=== PATIENT | female | born 1980 | race Two or more races ===

== ENCOUNTER 2024-11-04 02:51 | Inpatient (IN) | payer MEDICAID, SELFPAY ==
[2024-11-04] VITALS (12 sets, daily range): BP systolic 130–154; BP diastolic 80–95; PULSE 96–113; RESP 14–19; TEMP 36.3–37.6; O2SAT 95–100; BMI 28.0
--- NOTE | 2024-11-04 03:04 | EKG_ITS ---
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
[2024-11-04 03:20] LABS: Basophils # (Auto) 0.1 Thou/mm3 (0.0-0.2); Basophils % (Auto) 1 % (0-2.5); Eosinophils % (Auto) 0 % (0-10); Hematocrit 26.2 % (36.0-46.0); Immature Granulocytes % (Auto) 0 % (0-0); Immature Granulocytes Auto 0.02 Thou/mm3 (0.00-0.00); Lymphocytes # (Auto) 0.9 Thou/mm3 (1.0-4.8); Lymphocytes % (Auto) 16 % (10-50); Mean Corpuscular HGB Conc 30.5 g/dl (31.0-37.0); Mean Corpuscular Hemoglobin 20.4 pg (25.0-35.0); Mean Corpuscular Volume 67 fL (80-100); Monocytes # (Auto) 0.2 Thou/mm3 (0.0-0.8); Monocytes % (Auto) 4 % (0-12); Neutrophils # (Auto) 4.6 Thou/mm3 (1.8-7.7); Neutrophils % (Auto) 79 % (37-80); Nucleated Red Blood Cell # 0.04 Thou/mm3 (0.00-0.00); Nucleated Red Blood Cell % 1 /100 WBC (0); RDW Standard Deviation 43.4 fL (36.4-46.3); Red Blood Count 3.92 Miln/mm3 (4.00-5.20); White Blood Count 5.8 Thou/mm3 (3.6-11.0)
[2024-11-04 03:31] LABS: Platelet Count 77 Thou/mm3 (140-440)
[2024-11-04 03:42] LABS: Path Review Blood Smear Sent to Pathologist; Slide Review Platelets confirmed
[2024-11-04 03:43] LABS: Alanine Aminotransferase 68 U/L (10-49); Albumin/Globulin Ratio 0.9 (1.2-2.2); Alcohol, Blood Medical < 3.0 mg/dL (0-10.0); Alkaline Phosphatase 122 U/L (46-116); Anion Gap 17 (7-16); Aspartate Amino Transferase 206 U/L (0-34); BUN/Creatinine Ratio 14 Ratio (12-20); Bilirubin,Total 1.5 mg/dL (0.3-1.2); Blood Urea Nitrogen 10 mg/dL (9-23); Calcium 9.3 mg/dL (8.3-10.6); Calcium (Corrected) 9.3 mg/dL (8.5-10.1); Carbon Dioxide 20.4 mMol/L (20.0-31.0); Chloride 97 mMol/L (98-107); Creatinine (Component) 0.7 mg/dL (0.6-1.3); Estimated Creatinine Clearance 78.3 mL/min (>60); Globulin 4.3 gm/dL (2.3-3.5); Glucose 155 mg/dL (74-106); Osmolality,Calculated 270 (275-295); Sodium 134 mMol/L (136-145); Total Protein 8.3 gm/dL (5.7-8.2); eGFR > 60 See Note
[2024-11-04 04:10] LABS: Collection Type, Urine Clean Catch
[2024-11-04 04:31] LABS: Amphetamine/Methamp Scrn,U Positive (Negative); Barbiturate Screen,Urine Negative (Negative); Benzodiazepines Screen,Urine Negative (Negative); Benzoylecgonine Screen, Ur Negative (Negative); Fentanyl Screen,Urine Negative (Negative); Opiate Screen,Urine Negative (Negative); THC Screen,Urine Negative (Negative)
[2024-11-04 04:33] LABS: Bilirubin,Urine Negative (Negative); Blood,Urine 3+ (Negative); Clarity,Urine Turbid (Clear/Hazy); Color,Urine Amber (Lt Yel-Yel); Glucose, Urine Trace (Negative); Hyaline Casts,Urine 2 /hpf (0-1); Ketones,Urine Negative (Negative); Leukocyte Esterase,Urine Negative (Negative); Nitrite,Urine Negative (Negative); Protein,Urine 3+ (Neg - Trace); RBC,Urine 454 /hpf (0-3); Squamous Epithelial Cell,Urine 14 /hpf (0-5); Urobilinogen,Urine Negative mg/dL (0.0-1.0); WBC,Urine 13 /hpf (0-5)
--- NOTE | 2024-11-04 05:45 | PD.EDRME ---
Rapid Medical Screening Exam RME Arrival date/time: 11/04/24 02:51 Chief Complaint: Seizure Vital signs: Vital Signs Temperature 99.4 F 11/04/24 03:06 Pulse Rate 113 H 11/04/24 03:06 Respiratory Rate 18 11/04/24 03:06 Blood Pressure 133/80 H 11/04/24 03:06 Pulse Oximetry (%) 100 11/04/24 03:06 Oxygen Delivery Method Room Air 11/04/24 03:06 Vital signs reviewed by provider: Yes RME Narrative: 44-year-old female presenting to the emergency department with possible seizure. The patient has presented to the emergency department in the past for drinking alcohol. The patient's labs, heart rate and other vitals have been reviewed and she will be followed by another board-certified provider to include follow-up on all the labs, CT scans, further workup, and final disposition.
[2024-11-04] MEDS: LORazepam 2 MG/ML VIAL IVP ×2 (06:10→07:29)
--- NOTE | 2024-11-04 06:55 | PD.EDSEIZ ---
ED Seizures RME/HPI General Chief Complaint: Seizure Stated Complaint: SEIZURES Time Seen by Provider: 11/04/24 06:23 Arrival date/time: 11/04/24 02:51 RME / HPI RME / HPI Narrative: 44-year-old female presenting to the emergency department with possible seizure. The patient has presented to the emergency department in the past for drinking alcohol. The patient's labs, heart rate and other vitals have been reviewed and she will be followed by another board-certified provider to include follow-up on all the labs, CT scans, further workup, and final disposition. DR. PACO DELCID ED EVALUATION: 44 year old female presents to the Emergency Department [facility] with complaint of seizure-like activity. She states she has history of seizures in the past; she states she gets seizures when she stops drinking. She would like to stop drinking. She has left side tongue pain from bitting it during her seizure. Related Data Allergies Allergy/AdvReac Type Severity Reaction Status Date / Time No Known Allergies Allergy Verified 11/04/24 05:51 Review of Systems Review of Systems Systems Reviewed: All systems reviewed, normal except as documented Past Medical History Surgical History SURGICAL: Positive Tubal Ligation Social History SMOKING STATUS: Never smoker SUBSTANCE USE: methamphetamine ALCOHOL: Current ED Exam Narrative Physical exam: GENERAL APPEARANCE: alert and oriented x 4, well-developed, well-nourished, no acute distress, tremulous, drowsy but arousable to voice. VITALS: All vitals were reviewed and the pulse ox is 98% on room air, which is normal according to my interpretation. HEENT: She has swelling of her tongue in the left side from bite; pupils equal, round, reactive to light; EOMI; mucous membranes pink, moist; oropharynx clear NECK: Supple LUNGS: CTABL; no wheezes, no rales, no rhonchi HEART: Tachycardic, regular rhythm; normal S1, S2; no murmurs ABDOMEN: non distended; normal BS; soft, no tenderness, no guarding, no rebound; no masses, no organomegaly, no hernia BACK: no CVA tenderness EXTREMITIES: atraumatic; no edema NEUROLOGIC: tremulous; awake; alert and oriented x4; cranial nerves II-XII grossly intact; no focal sensory or motor deficits PSYCHIATRIC: appropriate mood and affect SKIN: warm, dry, normal color; no rashes Course Quality Measures none Orders Category Date Time Status EKG (ED ONLY) *Do not use* NOW Care 11/04/24 03:04 Completed Insert IV NOW Care 11/04/24 03:[address] head/brain wo con Stat Exams 11/04/24 09:26 Completed EKG (ED Only) Stat Exams 11/04/24 03:04 Draft US abdomen limited Stat Exams 11/04/24 07:19 Completed Alcohol, Blood Medical Stat Lab 11/04/24 03:10 Completed Ammonia Stat Lab 11/04/24 11:00 Completed CBC Stat Lab 11/04/24 03:10 Completed CMP [Comprehensive Metabolic Panel] Stat Lab 11/04/24 03:10 Completed Drug Screen,Urine Stat Lab 11/04/24 04:00 Completed Magnesium Stat Lab 11/04/24 03:10 Completed Path Review Blood Smear Stat Lab 11/04/24 03:10 Completed UA [Urinalysis] Stat Lab 11/04/24 04:00 Completed KCL 10% Liq UDC 15 ML Med 11/04/24 06:43 Discontinued 40 meq PO X1 ONE LORazepam [Ativan Inj] Med 11/04/24 05:44 Discontinued 2 mg IVP X1 ONE LORazepam [Ativan Inj] Med 11/04/24 07:18 Discontinued 2 mg IVP X1 ONE Magnesium Sulfate 2 GM Ivpb [Magnesium Sulfate Ivpb] Med 11/04/24 11:29 Active 2 gm in 50 ml IV X1 Sodium Chloride 0.9% 1000 ml [Ns] 1,000 ml Med 11/04/24 07:19 Discontinued IV 999 mls/hr EEG Awake and Drowsy Stat RT 11/04/24 09:27 Ordered Vital Signs Vital signs: Vital Signs Temperature 99.4 F 11/04/24 03:06 Pulse Rate 113 H 11/04/24 03:06 Respiratory Rate 18 11/04/24 03:06 Blood Pressure 133/80 H 11/04/24 03:06 Pulse Oximetry (%) 100 11/04/24 03:06 Oxygen Delivery Method Room Air 11/04/24 03:06 Seizure MDM Narrative MDM Narrative:: IKristen am scribing for and in the presence of Dr. Prince. Patient data External records reviewed:: EMS form Clinical information provided by:: patient and EMS Social determinants that could affect healthcare access:: substance use (Methamphetamine abuse, alcohol abuse. ) Patient has the following chronic illnesses:: She states she has history of seizures in the past; she states she gets seizures when she stops drinking. Tubal Ligation. Methamphetamine abuse, alcohol abuse. How is presenting disease/condition affected by chronic disease/condition?: no chronic disease Evaluation data The following diagnostics were reviewed and interpreted by me:: lab results, radiology exam(s) and EKG tracing(s) (EKG#1: EKG at 0328 hours. Interpreted by me: sinus tachycardia, rate 100, no acute ischemic changes) Lab and/or radiology exams considered but not ordered:: none Interpretation Summary: Procedure(s): US abdomen limited Accession Number(s): [id number] cc: Rehan Hogan MD; NO PRIMARY/FAMILY,PHYSICIAN; Mary Anne Prince MD~ Examination: Abdomen sonogram, Limited Date and time of exam: November 06, 2024 0818 hrs. Indications: Elevated liver function tests on laboratory examination today Technique: Real-time nguyen scale transabdominal sonographic images of the upper abdomen obtained. Findings: Normal gallbladder Normal common bile duct 0.3 cm Pancreatic head 2.7 cm Liver 13.8 cm fatty infiltration mildly irregular contour no liver lesions Normal hepatopedal portal venous flow Patent IVC Impression: Normal gallbladder Fatty liver Dictated By: Rehan Hogan MD Procedure(s): CT head/brain wo con Accession Number(s): [id number] cc: Saulo Bowman MD; NO PRIMARY/FAMILY,PHYSICIAN; Mary Anne Prince MD~ Examination: CT brain head without contrast. 2-D sagittal coronal reconstructions Date and time of exam:11/04/2024, 10:27 AM CTDI: vol (mGy):47.1 DLP: (mGycm):935 INDICATION: Seizure comparisons: 11/07/2022 Technique: Multiple CT axial sections of the brain have been obtained, 5 mm slice thickness. Contrast has not been administered. 2-D sagittal, coronal reconstructions have been obtained Low dose protocols were performed. One or more of the following dose reduction techniques were used; automated exposure control, adjustment of the mA and/or KV according to patient size, use of iterative reconstruction technique. Findings: No significant ventricular enlargement. Intra-axial or extra-axial hemorrhage density is not seen. No mass effect or midline shift Basal cisterns are not remarkable. Fourth ventricle is midline. Cranial vault intact. Impression: Negative for acute hemorrhage, mass effect or midline shift Dictated By: Saulo Bowman MD Medications / Prescriptions Medications or Prescriptions considered but not ordered:: none Medication administrations:: Medication Administration History Magnesium Sulfate (Magnesium Sulfate Ivpb) 2 gm in 50 mls @ 25 mls/hr IV X1 ONE Stop: 11/04/24 13:28 Last Admin: 11/04/24 11:56 Dose: 25 mls/hr Documented By: YENNIFER Discontinued Medications Sodium Chloride (Ns) 1,000 mls @ 999 mls/hr IV .Q1H1M ONE Stop: 11/04/24 08:19 Last Infusion: 11/04/24 08:50 Dose: Infused Documented By: Admin: 11/04/24 07:28 Dose: 999 mls/hr Documented By: DB Lorazepam (Lorazepam 2 Mg/Ml Vial) 2 mg IVP X1 ONE Stop: 11/04/24 05:45 Last Admin: 11/04/24 06:10 Dose: 2 mg Documented By: EF Lorazepam (Lorazepam 2 Mg/Ml Vial) 2 mg IVP X1 ONE Stop: 11/04/24 07:19 Last Admin: 11/04/24 07:29 Dose: 2 mg Documented By: DB Potassium Chloride (Potassium Chloride 10% 20 Meq/15 Ml Udc) 40 meq PO X1 ONE Stop: 11/04/24 06:44 Last Admin: 11/04/24 07:03 Dose: 40 meq Documented By: DB see above Consultations Consultation(s) initiated? (list below): Yes Consultation #1 (Physician, Specialty, Details): Discussed test HPI, PMHx, lab, radiology results and/or management with hospitalist. Will admit for further evaluation and management. Accepts patient for admission. Time: 11:50 Diagnosis Seizure Differential Diagnosis: intractable seizure disorder, focal seizure, generalized seizure and other (drug abuse, alcohol abuse) Most likely diagnosis given after review of the tests above:: Alcohol withdrawals Admission Indicated Admission indicated?: indicated Admission Request Was there a request for admission?: Yes Admission Attestation Admission request attestation: Discussed case with [] from Hospitalist service regarding admission. Discussed patients ED course, exam findings, labs, and radiology results. The Hospitalist [agrees,declines] to accept the patient for admission. Disposition Plan Disposition Plan: Admit Discharge Plan Plan Patient Disposition: Admit Acute Care w/in Hospital Problem List Clinical Impression: Alcohol dependence with withdrawal
[2024-11-04] MEDS: POTASSIUM CHLORIDE 10% 20 MEQ/15 ML UDC 40 MEQ PO (07:03)
--- NOTE | 2024-11-04 07:19 | XR_ITS ---
Examination: Abdomen sonogram, Limited Date and time of exam: November 06, 2024 0818 hrs. Indications: Elevated liver function tests on laboratory examination today Technique: Real-time nguyen scale transabdominal sonographic images of the upper abdomen obtained. Findings: Normal gallbladder Normal common bile duct 0.3 cm Pancreatic head 2.7 cm Liver 13.8 cm fatty infiltration mildly irregular contour no liver lesions Normal hepatopedal portal venous flow Patent IVC Impression: Normal gallbladder Fatty liver
[2024-11-04] MEDS: SODIUM CHLORIDE 0.9% 1000 ML 1,000 ML 999 ML IV (07:28)
[2024-11-04 07:50] LABS: Magnesium 1.5 mg/dL (1.6-2.6)
--- NOTE | 2024-11-04 09:26 | XR_ITS ---
Examination: CT brain head without contrast. 2-D sagittal coronal reconstructions Date and time of exam:11/04/2024, 10:27 AM CTDI: vol (mGy):47.1 DLP: (mGycm):935 INDICATION: Seizure comparisons: 11/07/2022 Technique: Multiple CT axial sections of the brain have been obtained, 5 mm slice thickness. Contrast has not been administered. 2-D sagittal, coronal reconstructions have been obtained Low dose protocols were performed. One or more of the following dose reduction techniques were used; automated exposure control, adjustment of the mA and/or KV according to patient size, use of iterative reconstruction technique. Findings: No significant ventricular enlargement. Intra-axial or extra-axial hemorrhage density is not seen. No mass effect or midline shift Basal cisterns are not remarkable. Fourth ventricle is midline. Cranial vault intact. Impression: Negative for acute hemorrhage, mass effect or midline shift
[2024-11-04 11:28] LABS: Ammonia 12 uMol/L (11-32)
[2024-11-04] MEDS: Magnesium Sulfate 2 GM Ivpb 2 GM/50 ML BAG IV ×2 (11:56→13:44)
[2024-11-04] MEDS: chlordiazePOXIDE HCl 25 MG CAPSULE PO ×2 (13:45→21:44)
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
[2024-11-04] MEDS: THIAMINE 100 MG TABLET PO (17:12)
[2024-11-04] MEDS: POTASSIUM CHLORIDE 20 mEq TABCR 40 MEQ PO (17:14)
--- NOTE | 2024-11-04 20:11 | PC.NURSE ---
pt unable to state pharmacy of choice.
[2024-11-04] MEDS: LORazepam 0.5 MG TABLET 1 MG PO (23:30)
[2024-11-05] VITALS (8 sets, daily range): BP systolic 121–147; BP diastolic 71–108; PULSE 108–128; RESP 16–25; TEMP 36.1–37; O2SAT 94–99; BMI 27.9
[2024-11-05] MEDS: LORazepam 2 MG/ML VIAL 1 MG IV ×3 (02:19→13:49)
[2024-11-05] MEDS: NICOTINE PATCH 21 MG/24 HR PATCH.TD24 TOP (03:41)
[2024-11-05] MEDS: LORazepam 2 MG/ML VIAL IVP ×3 (03:41→17:02)
[2024-11-05 05:08] LABS: Basophils % (Auto) 1 % (0-2.5); Eosinophils # (Auto) 0.1 Thou/mm3 (0.0-0.5); Eosinophils % (Auto) 1 % (0-10); Immature Granulocytes % (Auto) 1 % (0-0); Immature Granulocytes Auto 0.04 Thou/mm3 (0.00-0.00); Lymphocytes # (Auto) 1.3 Thou/mm3 (1.0-4.8); Lymphocytes % (Auto) 17 % (10-50); Mean Corpuscular Hemoglobin 21.1 pg (25.0-35.0); Mean Corpuscular Volume 70 fL (80-100); Monocytes # (Auto) 0.4 Thou/mm3 (0.0-0.8); Monocytes % (Auto) 6 % (0-12); Neutrophils # (Auto) 5.9 Thou/mm3 (1.8-7.7); Neutrophils % (Auto) 76 % (37-80); Nucleated Red Blood Cell % 0 /100 WBC (0); Platelet Count 82 Thou/mm3 (140-440); RDW Standard Deviation 45.5 fL (36.4-46.3); Red Blood Count 3.84 Miln/mm3 (4.00-5.20); White Blood Count 7.8 Thou/mm3 (3.6-11.0)
[2024-11-05] MEDS: chlordiazePOXIDE HCl 25 MG CAPSULE PO (05:17)
[2024-11-05 05:18] LABS: Hemoglobin 8.1 g/dL (12.0-16.0)
[2024-11-05 05:36] LABS: Vitamin B12 901 pg/mL (211-911)
[2024-11-05 05:45] LABS: Iron 16 mcg/dL (50-170); Percent Iron Saturation 4 % (20-55); Total Iron Binding Capacity 365 mcg/dL (250-425); Unsaturated Iron Binding 349 (225-295)
[2024-11-05 05:56] LABS: Alanine Aminotransferase 59 U/L (10-49); Alkaline Phosphatase 131 U/L (46-116); Anion Gap 10 (7-16); Aspartate Amino Transferase 145 U/L (0-34); BUN/Creatinine Ratio 15 Ratio (12-20); Bilirubin,Total 1.8 mg/dL (0.3-1.2); Blood Urea Nitrogen 9 mg/dL (9-23); Calcium 8.6 mg/dL (8.3-10.6); Calcium (Corrected) 8.6 mg/dL (8.5-10.1); Carbon Dioxide 21.4 mMol/L (20.0-31.0); Cardiac Risk Estimate 1.9 RATIO (3.7-5.6); Chloride 104 mMol/L (98-107); Cholesterol 207 mg/dL (132-200); Creatinine (Component) 0.6 mg/dL (0.6-1.3); Estimated Creatinine Clearance 91.3 mL/min (>60); Globulin 4.2 gm/dL (2.3-3.5); Glucose 111 mg/dL (74-106); HDL Cholesterol 108 mg/dL (40-60); LDL Cholesterol,Calculated 86 mg/dL (0-130); Magnesium 2.2 mg/dL (1.6-2.6); Osmolality,Calculated 269 (275-295); Potassium 3.4 mMol/L (3.4-5.1); Sodium 135 mMol/L (136-145); Thyroid Stimulating Hormone 4.67 uIU/mL (0.55-4.78); Total Protein 8.2 gm/dL (5.7-8.2); Triglycerides 67 mg/dL (30-150); eGFR > 60 See Note
[2024-11-05 08:23] LABS: INR 1.1 (0.9-1.3); Partial Thromboplastin Time 28.4 Seconds (22.0-36.0); Prothrombin Time 11.8 Seconds (9.0-12.2)
[2024-11-05] MEDS: ENOXAPARIN SOD INJ 40 MG/0.4 ML SYRINGE SC (10:00)
[2024-11-05] MEDS: POTASSIUM CHL 10 mEq IVPB 10 MEQ/100 ML BAG 100 MEQ IV ×4 (10:03→15:06)
[2024-11-05] MEDS: FOLIC ACID 1 MG TABLET PO (10:20)
[2024-11-05] MEDS: THIAMINE 100 MG TABLET PO (10:20)
[2024-11-05] MEDS: PANTOPRAZOLE 40 MG TABLET PO (10:20)
--- NOTE | 2024-11-05 12:15 | PC.SS ---
Patient Chel Hill is a 44 Year old female admitted for Altered mental status. SS met with with patient at bedside, however patient appeared altered. SS contacted patient's life partner, Jeovanny Peña who reports is her Surrogate decision maker [phone]. He reports they just moved to [facility], however does not remember the address since they just moved in. Prior to admission he reports patient was able to ambulate and was able to complete all ADL's independently. He reports that prior to admission patient was drinking half a bottle of Vodka a day and had stopped drinking X2 days and is when she became altered and fell. Choice of pharmacy is [facility]. Patient does not have a PCP. When patient is alert and oriented, SS will meet with patient to provide ETOH resources. Patient's life partner, Jeovanny Peña will provide transportation. Discharge plan: Home Next of Kin life partner, Jeovanny Pageia
--- NOTE | 2024-11-05 13:01 | PC.NURSE ---
Contacted Dr. Umanzor in regards to HCG test, said to put in telephone order.
[2024-11-05] MEDS: chlordiazePOXIDE HCl 25 MG CAPSULE 50 MG PO (14:05)
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
[2024-11-05 15:42] LABS: HCG,Qualitative Serum Negative
[2024-11-05] MEDS: LORazepam 2 MG/ML VIAL IV (16:30)
[2024-11-05] MEDS: PHENobarbital INJ 130 MG/1 ML VIAL IVP ×2 (16:52→17:31)
--- NOTE | 2024-11-05 16:53 | ESPR_ITS ---
<Statement entered by Carl Hernandez MD - 11/07/24 07:58> Senior Resident Attestation: I supervised/discussed management plan with management internship physician Dr. Umanzor, and was involved in the care of this patient. I personally saw and examined the patient and discussed the assessment and plan with the entire medicine team, including my attending. I agree with the assessment and plan as documented. Patient's care was discussed with attending physician, Dr. Kent. Carl Hernandez MD PGY-2. Documentation for date of: 11/05/24 Subjective Subjective Interval history: Patient is seen and examined at bedside Overnight patient received multiple doses of lorazepam for alcohol withdrawal. Patient is oriented to time and person. But still appears to be agitated and in alcohol withdrawal Vitals are stable except for tachycardia which is likely due to alcohol withdrawal Labs significant for Hb 8.1, platelets 82 and liver enzymes started to trend downward Patient is placed on IV CIWA protocol and phenobarbital is added as needed Patient's boyfriend is at bedside and reported that she takes 4 drinks of hard liquor every day and her last alcohol drink is 2 days before the hospital admission Exam Vital Signs Temp Pulse Resp BP Pulse Ox O2 Del Method 96.9 F 113 H 22 H 128/88 H 99 Room Air 11/05/24 12:00 11/05/24 12:00 11/05/24 12:00 11/05/24 12:00 11/05/24 12:00 11/05/24 12:00 Narrative Exam General: Awake. still appears confused HEENT: Normocephalic, atraumatic, mucous membranes moist. Heart: Tachycardia and Regular rhythm, no murmurs. Lungs: Clear to auscultation with no wheezing or crackles. Abdomen: Soft, nondistended, nontender, positive bowel sounds. ?No guarding or rebound tenderness. Neurologic: Confused, no gross neurological deficit, and patient able to move all 4 extremities. Extremities: No edema. Surgical scar noted on right lower extremity Skin: No rash or ecchymoses. Objective Labs 11/06/24 05:21 11/06/24 05:21 Labs: Laboratory Results - last 24 hr 11/05/24 11/05/24 04:56 14:10 WBC 7.8 RBC 3.84 L Hgb 8.1 L Hct 27.0 L MCV 70 L MCH 21.1 L MCHC 30.0 L RDW Std Deviation 45.5 Plt Count 82 L Neut % (Auto) 76 Lymph % (Auto) 17 [place] % (Auto) 6 Eos % (Auto) 1 Baso % (Auto) 1 Neut # (Auto) 5.9 Lymph # (Auto) 1.3 [place] # (Auto) 0.4 Eos # (Auto) 0.1 Baso # (Auto) 0.0 Immature Gran # (Auto) 0.04 H Absolute Nucleated RBC 0.00 Immature Gran % 1 H Nucleated RBC % 0 PT 11.8 INR 1.1 APTT 28.4 Sodium 135 L Potassium 3.4 Chloride 104 Carbon Dioxide 21.4 Anion Gap 10 BUN 9 Creatinine 0.6 Estim Creat Clear Calc 91.3 eGFR > 60 BUN/Creatinine Ratio 15 Glucose 111 H Calculated Osmolality 269 L Calcium 8.6 Corrected Calcium 8.6 Magnesium 2.2 Iron 16 L TIBC 365 Iron Saturation 4 L Unsat Iron Binding 349 H Total Bilirubin 1.8 H AST 145 H ALT 59 H Alkaline Phosphatase 131 H Total Protein 8.2 Albumin 4.0 Globulin 4.2 H Albumin/Globulin Ratio 1.0 L Triglycerides 67 Cholesterol 207 H LDL Cholesterol, Calc 86 HDL Cholesterol 108 H Cholesterol/HDL Ratio 1.9 L Vitamin B12 901 TSH 4.67 HCG, Qual Negative Quality Measures Quality Measures none Assessment & Plan Assessment Current Active Medications: Generic Name Dose Route Start Last Admin Trade Name Freq PRN Reason Stop Dose Admin Acetaminophen 650 mg 11/04/24 12:55 Acetaminophen 325 Mg Tablet PO 12/04/24 12:54 Q6H PRN Fever >100.3 or mild pain 1-3 Chlordiazepoxide HCl 50 mg 11/05/24 14:00 11/05/24 14:05 Chlordiazepoxide Hcl 25 Mg Capsule PO 11/10/24 13:59 50 mg Q8HR DRAGAN Administration Enoxaparin Sodium 40 mg 11/05/24 09:00 11/05/24 10:00 Enoxaparin Sod Inj 40 Mg/0.4 Ml Syringe SC 11/19/24 08:59 40 mg QDAY DRAGAN Administration Folic Acid 1 mg 11/05/24 09:00 11/05/24 10:20 Folic Acid 1 Mg Tablet PO 12/05/24 08:59 1 mg QDAY DRAGAN Administration Lorazepam 2 mg 11/04/24 14:58 Lorazepam 2 Mg/Ml Vial IVP 11/09/24 15:59 Q2HR PRN seizures Lorazepam 0.5 mg 11/05/24 09:50 Lorazepam 2 Mg/Ml Vial IV 11/10/24 09:49 Q2HR PRN CIWA SCORE 8-13 Lorazepam 1 mg 11/05/24 09:50 11/05/24 13:49 Lorazepam 2 Mg/Ml Vial IV 11/10/24 09:49 1 mg Q2HR PRN Administration CIWA SCORE 14-19 Lorazepam 2 mg 11/05/24 09:50 11/05/24 16:30 Lorazepam 2 Mg/Ml Vial IV 11/10/24 09:49 2 mg Q2HR PRN Administration CIWA SCORE 20-25 Lorazepam 2 mg 11/05/24 09:50 Lorazepam 2 Mg/Ml Vial IVP X1 PRN Breakthrough Agitation Magnesium Hydroxide 30 ml 11/04/24 12:55 Milk Of Magnesia Susp 30 Ml Udc PO 12/04/24 12:54 QDAY PRN CONSTIPATION Protocol Ondansetron HCl 4 mg 11/04/24 12:55 Ondansetron Inj 2 Mg/Ml Inj 2 Ml IV 12/04/24 12:54 Q6H PRN NAUSEA OR VOMITING Protocol Pantoprazole Sodium 40 mg 11/05/24 09:00 11/05/24 10:20 Pantoprazole 40 Mg Tablet PO 12/05/24 08:59 40 mg QDAY DRAGAN Administration Phenobarbital Sodium 130 mg 11/05/24 09:58 Phenobarbital Inj 130 Mg/1 Ml Vial IVP 11/19/24 09:57 PRN PRN ALCOHOL WITHDRAWAL Thiamine HCl 100 mg 11/04/24 15:15 11/05/24 10:20 Thiamine 100 Mg Tablet PO 12/04/24 15:14 100 mg QDAY DRAGAN Administration Plan A 44-year-old female with past medical history significant for alcohol abuse was brought to the hospital by EMS with chief complaints of seizure-like activity. # Seizures # Likely alcohol withdrawal seizures -Patient was brought to the hospital by EMS with complaints of seizure-like activity -Patient did not have any further seizure episodes in the hospital -Patient is very confused at the time of admission and her history is so unreliable, as she is giving different histories to different doctors -Vitals at the time of admission are stable except for tachycardia with heart rate around 113 -Labs showed WBC 5.8, Hb 8, platelets 77 -Urine toxicology tested positive for meth -Head CT is negative for any acute hemorrhage, stroke Plan -Admitted to telemetry -Started on CIWA protocol -Lorazepam as needed for any seizure activity -Chlordiazepoxide 50 Mg p.o. 3 times daily -Started on thiamine and folic acid -Neurochecks every fourth hourly -Consulted Dr. Ni, will appreciate her recommendations -EEG ordered # Microcytic hypochromic anemia # Iron deficiency anemia Likely due to poor nutritional intake -Hemoglobin at the time of admission is 8, MCV 67, MCH 20.4, MCHC 30.5 -Iron panel - iron deficiency noted, B12- WNL -Stool for occult blood ordered -Will follow-up with results # Thrombocytopenia Likely due to alcohol abuse -Platelet count at the time of admission is 77 -Will monitor CBC and look for bleeding manifestations # Hypokalemia, hypomagnesemia, resolved -Magnesium at the time of admission is 1.5, potassium is 3 - improved to normal limits -Likely due to poor nutritional intake in the setting of alcoholism # Hyperbilirubinemia # Transaminitis Likely elevated in the setting of alcohol abuse, alcohol hepatitis -At the time of admission, total bilirubin is 1.5, AST 206, ALT 68 --> total bilirubin elevated to 1.8, AST and ALT are downtrending -will monitor the liver enzymes # Hematuria -Patient found to have 3+ blood and 454 RBC - Patient having menstruation # Methamphetamine abuse # Alcohol abuse -Patient tested positive for methamphetamine and endorsed that she is using meth through inhalation -Patient also reported that she is having alcohol, 4 drinks of hard liquor every day -Referral to high school social studies tutor done Hospital Maintenance: Dispo: Telemetry DVT ppx: Lovenox GI ppx: Protonix Diet: Regular IV lines: Peripheral Code status: Full code Patient plan of care was discussed with the attending physician, Dr. Kent and senior resident Dr. David Umanzor, PGY1 Attending Provider Attestation/Addendum I attest that I was physically present for the evaluation, physical examination, lab and imaging review of the patient with the residents. I discussed the case with the residents and agree with the findings and plans of care as documented above. Overnight, patient received multiple doses of lorazepam for withdrawal symptoms. She was also restarted on restraints as she was agitated. This morning, patient is alert and awake but confused. Continues to be on CIWA protocol with lorazepam and chlordiazepoxide. Added phenobarbital as she was having agitation. EEG was obtained, awaiting read. No new seizure episodes since admission. Patient noted to have microcytic anemia, low iron on iron panel, occult blood pending. Noted to have low magnesium and potassium, repleted accordingly. Alber Kent MD
--- NOTE | 2024-11-05 23:01 | PD.VPROG1 ---
Telemedicine visit statement This visit was conducted with the use of interactive audio and video telecommunications system that permits real time communication between the patient and the provider. Patient's verbal consent for virtual visit was obtained on 11/05/24 at 2301. Documentation for date of: 11/05/24 Virtual exam Vital Signs Temp Pulse Resp BP Pulse Ox O2 Del Method 97.8 F 109 H 25 H 121/87 H 96 Room Air 11/05/24 20:00 11/05/24 20:00 11/05/24 20:00 11/05/24 20:00 11/05/24 20:00 11/05/24 20:00 Objective Labs 11/05/24 04:56 11/05/24 04:56 Labs: Laboratory Results - last 24 hr 11/05/24 11/05/24 04:56 14:10 WBC 7.8 RBC 3.84 L Hgb 8.1 L Hct 27.0 L MCV 70 L MCH 21.1 L MCHC 30.0 L RDW Std Deviation 45.5 Plt Count 82 L Neut % (Auto) 76 Lymph % (Auto) 17 [place] % (Auto) 6 Eos % (Auto) 1 Baso % (Auto) 1 Neut # (Auto) 5.9 Lymph # (Auto) 1.3 [place] # (Auto) 0.4 Eos # (Auto) 0.1 Baso # (Auto) 0.0 Immature Gran # (Auto) 0.04 H Absolute Nucleated RBC 0.00 Immature Gran % 1 H Nucleated RBC % 0 PT 11.8 INR 1.1 APTT 28.4 Sodium 135 L Potassium 3.4 Chloride 104 Carbon Dioxide 21.4 Anion Gap 10 BUN 9 Creatinine 0.6 Estim Creat Clear Calc 91.3 eGFR > 60 BUN/Creatinine Ratio 15 Glucose 111 H Calculated Osmolality 269 L Calcium 8.6 Corrected Calcium 8.6 Magnesium 2.2 Iron 16 L TIBC 365 Iron Saturation 4 L Unsat Iron Binding 349 H Total Bilirubin 1.8 H AST 145 H ALT 59 H Alkaline Phosphatase 131 H Total Protein 8.2 Albumin 4.0 Globulin 4.2 H Albumin/Globulin Ratio 1.0 L Triglycerides 67 Cholesterol 207 H LDL Cholesterol, Calc 86 HDL Cholesterol 108 H Cholesterol/HDL Ratio 1.9 L Vitamin B12 901 TSH 4.67 HCG, Qual Negative
[2024-11-06] VITALS: BP 135/97; PULSE 102; PULSE 109; RESP 22; TEMP 36.5; O2SAT 96
[2024-11-06] MEDS: LORazepam 2 MG/ML VIAL 0.5 MG IV (02:24)
[2024-11-06 04:00] VITALS: BP 115/88; PULSE 101; PULSE 102; RESP 14; TEMP 36.3; O2SAT 98
[2024-11-06 05:55] LABS: Basophils # (Auto) 0.1 Thou/mm3 (0.0-0.2); Basophils % (Auto) 1 % (0-2.5); Eosinophils # (Auto) 0.1 Thou/mm3 (0.0-0.5); Eosinophils % (Auto) 2 % (0-10); Hematocrit 26.9 % (36.0-46.0); Immature Granulocytes % (Auto) 0 % (0-0); Immature Granulocytes Auto 0.02 Thou/mm3 (0.00-0.00); Lymphocytes % (Auto) 17 % (10-50); Mean Corpuscular HGB Conc 29.4 g/dl (31.0-37.0); Mean Corpuscular Hemoglobin 20.7 pg (25.0-35.0); Mean Corpuscular Volume 70 fL (80-100); Monocytes # (Auto) 0.3 Thou/mm3 (0.0-0.8); Monocytes % (Auto) 6 % (0-12); Neutrophils # (Auto) 4.4 Thou/mm3 (1.8-7.7); Neutrophils % (Auto) 75 % (37-80); Nucleated Red Blood Cell % 0 /100 WBC (0); Platelet Count 89 Thou/mm3 (140-440); RDW Standard Deviation 45.5 fL (36.4-46.3); Red Blood Count 3.82 Miln/mm3 (4.00-5.20); White Blood Count 5.9 Thou/mm3 (3.6-11.0)
[2024-11-06 06:00] VITALS: BMI 27.8
[2024-11-06 06:05] LABS: Hemoglobin 7.9 g/dL (12.0-16.0)
[2024-11-06 06:15] LABS: Alanine Aminotransferase 46 U/L (10-49); Albumin, Serum 3.7 gm/dL (3.5-5.0); Albumin/Globulin Ratio 0.9 (1.2-2.2); Alkaline Phosphatase 114 U/L (46-116); Anion Gap 12 (7-16); Aspartate Amino Transferase 85 U/L (0-34); BUN/Creatinine Ratio 20 Ratio (12-20); Bilirubin,Total 1.4 mg/dL (0.3-1.2); Blood Urea Nitrogen 10 mg/dL (9-23); Calcium 8.3 mg/dL (8.3-10.6); Calcium (Corrected) 8.5 mg/dL (8.5-10.1); Carbon Dioxide 21.5 mMol/L (20.0-31.0); Chloride 105 mMol/L (98-107); Creatinine (Component) 0.5 mg/dL (0.6-1.3); Estimated Creatinine Clearance 109.5 mL/min (>60); Glucose 99 mg/dL (74-106); Osmolality,Calculated 274 (275-295); Potassium 3.1 mMol/L (3.4-5.1); Sodium 138 mMol/L (136-145); Total Protein 7.7 gm/dL (5.7-8.2); eGFR > 60 See Note
--- NOTE | 2024-11-06 06:17 | PD.NEUROPROG ---
Documentation for date of: 11/05/24 Subjective Subjective Interval history: Patient was seen in telemetry today at the bedside. No new symptoms/recurrent seizures after admission. Tolerating oral diet well. Exam - Neurology Vital Signs Temp Pulse Resp BP Pulse Ox O2 Del Method 97.4 F 102 H 14 115/88 H 98 Room Air 11/06/24 04:00 11/06/24 04:00 11/06/24 04:00 11/06/24 04:00 11/06/24 04:00 11/06/24 04:00 Narrative Exam GENERAL APPEARANCE: Well hydrated, well-nourished in no acute distress. HEENT: Normocephalic, atraumatic, extraocular movements intact. Pupils: Equal reacting to light and accommodation NECK: Supple, no JVD or bruits. CARDIOVASULAR: Heart: S1, S2 heard, regular without S3-S4 or murmur no rubs or gallops. LUNGS/CHEST: Clear to auscultation bilaterally. No rails, rhonchi, or wheezing. Normal inspection. ABDOMEN: Soft, nontender, with normal bowel sounds. No pulsatile masses. No rebound, rigidity, or guarding. Normal inspection and palpation. EXTREMITIES: Normal inspection and palpation. No edema, clubbing or cyanosis. SKIN: Warm and dry without rashes. Normal inspection. MUSCULOSKELETAL: No cervical, thoracic, lumbar or midline bony tenderness. Normal inspection. NEURO: Alert, awake and oriented x3. Cranial nerves: II through XII grossly intact. Speech and language: Normal with no dysarthria or dysphasia. Motor system: Tone and bulk: Normal: Strength: 5 out of 5 in all 4 extremities; No pronator drift noted. Deep tendon reflexes: 2+ bilaterally symmetrical. Plantar reflex: Downgoing bilaterally. Sensory system: Intact to all modalities of sensation bilaterally. Coordination: Intact to [id number] and [id number] test bilaterally. No ataxia, no dysmetria, or dysdiadochokinesia noted. No intention tremors noted. Gait: Normal. Toe, heel, tandem walk all are normal. Romberg: Negative. No signs of meningeal irritation noted. PSYCHIATRIC: Normal mood and affect. Objective Labs 11/06/24 05:21 11/06/24 05:21 Labs: Laboratory Results - last 24 hr 11/05/24 11/05/24 11/06/24 04:56 14:10 05:21 WBC 5.9 RBC 3.82 L Hgb 7.9 L Hct 26.9 L MCV 70 L MCH 20.7 L MCHC 29.4 L RDW Std Deviation 45.5 Plt Count 89 L Neut % (Auto) 75 Lymph % (Auto) 17 [place] % (Auto) 6 Eos % (Auto) 2 Baso % (Auto) 1 Neut # (Auto) 4.4 Lymph # (Auto) 1.0 [place] # (Auto) 0.3 Eos # (Auto) 0.1 Baso # (Auto) 0.1 Immature Gran # (Auto) 0.02 H Absolute Nucleated RBC 0.00 Immature Gran % 0 Nucleated RBC % 0 PT 11.8 INR 1.1 APTT 28.4 Sodium 138 Potassium 3.1 L Chloride 105 Carbon Dioxide 21.5 Anion Gap 12 BUN 10 Creatinine 0.5 L Estim Creat Clear Calc 109.5 eGFR > 60 BUN/Creatinine Ratio 20 Glucose 99 Calculated Osmolality 274 L Calcium 8.3 Corrected Calcium 8.5 Total Bilirubin 1.4 H AST 85 H ALT 46 Alkaline Phosphatase 114 Total Protein 7.7 Albumin 3.7 Globulin 4.0 H Albumin/Globulin Ratio 0.9 L HCG, Qual Negative Assessment & Plan Assessment and plan (1) Alcohol dependence with withdrawal: Status: Acute Assessment and plan: Follow Up with EEG Continue with DT prevention Advised alcohol cessation
[2024-11-06] MEDS: chlordiazePOXIDE HCl 25 MG CAPSULE 50 MG PO ×3 (07:58→21:15)
[2024-11-06 08:00] VITALS: BP 117/81; PULSE 101; PULSE 102; RESP 22; TEMP 36.4; O2SAT 95
[2024-11-06] MEDS: THIAMINE 100 MG TABLET PO (08:01)
[2024-11-06] MEDS: PANTOPRAZOLE 40 MG TABLET PO (08:01)
[2024-11-06] MEDS: ENOXAPARIN SOD INJ 40 MG/0.4 ML SYRINGE SC (08:01)
[2024-11-06] MEDS: FOLIC ACID 1 MG TABLET PO (08:02)
[2024-11-06] MEDS: POTASSIUM CHLORIDE 20 mEq TABCR 40 MEQ PO ×2 (08:50→08:51)
--- NOTE | 2024-11-06 11:37 | PD.RESPRO ---
Documentation for date of: 11/06/24 Subjective Subjective Interval history: No overnight acute events Per patient nurse no episodes of seizures overnight, patient is somnolent and confused. she states that she went to sleep and that she feels tired. CIWA 6 this morning. Denied any acute complaints at this moment like visual or auditory hallucinations Exam Vital Signs Temp Pulse Resp BP Pulse Ox O2 Del Method 97.6 F 102 H 22 H 117/81 95 Room Air 11/06/24 08:00 11/06/24 08:00 11/06/24 08:00 11/06/24 08:00 11/06/24 08:00 11/06/24 08:00 Narrative Exam General: Confused, well appearing, somnolent HEENT: NC/AT, PERRL, EOMI, Good conjugate gaze, moist mucous membranes Neck: Supple, No masses, No adenopathy, carotid pulse 2+ bilaterally without bruits, No JVD, normal range of motion. Chest: Symmetrical, atraumatic, and with equal expansion , Nontender on palpation no deformity and no crepitus. CVS: S1 and S2 present, Regular rate and rhythm, No murmurs, rubs or gallops perceived during auscultation. Lungs: Normal respiratory effort, CTAB, no wheezing, rhonchi or rales perceived during auscultation, No intercostal or subcostal retraction. Abdomen : Soft, no tenderness to palpation, no guarding ,no rebound, +BS, no organomegaly. Extremities: No edema, warm well perfused, normal tone and ROM, strength and sensation intact, cap refill less than 2, +2 dp equal bilaterally, able to move all 4 extremities spontaneously. Skin: Intact, no rashes, no lesions, no erythema or jaundice noted Neuro: Confused, bilateral upper extremity tremors noted, reflex symmetric and sensation normal, no focal neurologic deficits noted, GCS 15 Psych: Appropriate mood and affect. Objective Labs 11/08/24 05:15 11/07/24 04:26 Labs: Laboratory Results - last 24 hr 11/05/24 11/06/24 14:10 05:21 WBC 5.9 RBC 3.82 L Hgb 7.9 L Hct 26.9 L MCV 70 L MCH 20.7 L MCHC 29.4 L RDW Std Deviation 45.5 Plt Count 89 L Neut % (Auto) 75 Lymph % (Auto) 17 [place] % (Auto) 6 Eos % (Auto) 2 Baso % (Auto) 1 Neut # (Auto) 4.4 Lymph # (Auto) 1.0 [place] # (Auto) 0.3 Eos # (Auto) 0.1 Baso # (Auto) 0.1 Immature Gran # (Auto) 0.02 H Absolute Nucleated RBC 0.00 Immature Gran % 0 Nucleated RBC % 0 Sodium 138 Potassium 3.1 L Chloride 105 Carbon Dioxide 21.5 Anion Gap 12 BUN 10 Creatinine 0.5 L Estim Creat Clear Calc 109.5 eGFR > 60 BUN/Creatinine Ratio 20 Glucose 99 Calculated Osmolality 274 L Calcium 8.3 Corrected Calcium 8.5 Total Bilirubin 1.4 H AST 85 H ALT 46 Alkaline Phosphatase 114 Total Protein 7.7 Albumin 3.7 Globulin 4.0 H Albumin/Globulin Ratio 0.9 L HCG, Qual Negative Quality Measures Quality Measures none Assessment & Plan Assessment Current Active Medications: Generic Name Dose Route Start Last Admin Trade Name Freq PRN Reason Stop Dose Admin Acetaminophen 650 mg 11/04/24 12:55 Acetaminophen 325 Mg Tablet PO 12/04/24 12:54 Q6H PRN Fever >100.3 or mild pain 1-3 Chlordiazepoxide HCl 50 mg 11/05/24 14:00 11/06/24 07:58 Chlordiazepoxide Hcl 25 Mg Capsule PO 11/10/24 13:59 50 mg Q8HR DRAGAN Administration Enoxaparin Sodium 40 mg 11/05/24 09:00 11/06/24 08:01 Enoxaparin Sod Inj 40 Mg/0.4 Ml Syringe SC 11/19/24 08:59 40 mg QDAY DRAGAN Administration Folic Acid 1 mg 11/05/24 09:00 11/06/24 08:02 Folic Acid 1 Mg Tablet PO 12/05/24 08:59 1 mg QDAY DRAGAN Administration Lorazepam 2 mg 11/04/24 14:58 Lorazepam 2 Mg/Ml Vial IVP 11/09/24 15:59 Q2HR PRN seizures Lorazepam 0.5 mg 11/05/24 09:50 11/06/24 02:24 Lorazepam 2 Mg/Ml Vial IV 11/10/24 09:49 0.5 mg Q2HR PRN Administration CIWA SCORE 8-13 Lorazepam 1 mg 11/05/24 09:50 11/05/24 13:49 Lorazepam 2 Mg/Ml Vial IV 11/10/24 09:49 1 mg Q2HR PRN Administration CIWA SCORE 14-19 Lorazepam 2 mg 11/05/24 09:50 11/05/24 16:30 Lorazepam 2 Mg/Ml Vial IV 11/10/24 09:49 2 mg Q2HR PRN Administration CIWA SCORE 20-25 Magnesium Hydroxide 30 ml 11/04/24 12:55 Milk Of Magnesia Susp 30 Ml Udc PO 12/04/24 12:54 QDAY PRN CONSTIPATION Protocol Ondansetron HCl 4 mg 11/04/24 12:55 Ondansetron Inj 2 Mg/Ml Inj 2 Ml IV 12/04/24 12:54 Q6H PRN NAUSEA OR VOMITING Protocol Pantoprazole Sodium 40 mg 11/05/24 09:00 11/06/24 08:01 Pantoprazole 40 Mg Tablet PO 12/05/24 08:59 40 mg QDAY DRAGAN Administration Thiamine HCl 100 mg 11/04/24 15:15 11/06/24 08:01 Thiamine 100 Mg Tablet PO 12/04/24 15:14 100 mg QDAY DRAGAN Administration Plan #Alcohol dependence with withdrawal Patient was brought to the hospital by EMS with complaints of seizure-like activity No seizure witnessed during hospital admission Head CT was negative for hemorrhage, masses or midline shift Plan: -Admitted to telemetry - Continue CIWA protocol - Continue lorazepam IV as needed for breakthrough seizures - Delirium tremens preventive measures - Pending EEG report #Microcytic hypochromic anemia #Iron deficiency anemia #Thrombocytopenia #Hyperbilirubinemia #Transaminitis #Hematuria #Methamphetamine abuse #Alcohol abuse Plan: ? Continue management per primary team Patient discussed with my attending Dr Raine Saeed MD PGY-3 Disclaimer: Despite multiple revisions, due to the dictation software being used, the document bellow may not be free of grammatical errors including phonetic/typographic errors. However, this does not deter from our commitment to providing health care in the patient's best interest in mind. Attending Provider Attestation/Addendum I personally have seen and examined the patient at the bedside and I agree with resident's findings, assessment and plan of care. Patient's mental status is improving. Continue with current management.
[2024-11-06 12:00] VITALS: BP 106/69; PULSE 101; PULSE 105; RESP 18; TEMP 36.5; O2SAT 98
--- NOTE | 2024-11-06 13:18 | CHAP ---
9:30 AM Visited by spiritual care volunteer Provided prayer for Patient.
[2024-11-06] MEDS: DEXTROSE 5%-NS 1,000 ML 125 ML IV ×2 (14:40→23:02)
--- NOTE | 2024-11-06 15:32 | ESPR_ITS ---
Documentation for date of: 11/06/24 Subjective Subjective Interval history: Patient is seen and examined at bedside No acute overnight events but appears drowsy and could not get any complaints for today Vitals are stable except for mild tachycardia, which could be due to alcohol withdrawal. Labs showed mild anemia, thrombocytopenia, potassium 3.1 80 mEq of oral potassium is given. Total bilirubin and AST levels are trending downward Dr. Ni is following the patient and EEG was done, pending read Exam Vital Signs Temp Pulse Resp BP Pulse Ox O2 Del Method 97.7 F 101 H 18 106/69 98 Room Air 11/06/24 12:00 11/06/24 12:00 11/06/24 12:00 11/06/24 12:00 11/06/24 12:00 11/06/24 12:00 Narrative Exam General: Drowsy HEENT: Normocephalic, atraumatic, mucous membranes moist. Heart: Tachycardia and Regular rhythm, no murmurs. Lungs: Clear to auscultation with no wheezing or crackles. Abdomen: Soft, nondistended, nontender, positive bowel sounds. ?No guarding or rebound tenderness. Neurologic: Drowsy, no gross neurological deficit, and patient able to move all 4 extremities. Extremities: No edema. Surgical scar noted on right lower extremity Skin: No rash or ecchymoses. Objective Labs 11/06/24 05:21 11/06/24 05:21 Labs: Laboratory Results - last 24 hr 11/05/24 11/06/24 14:10 05:21 WBC 5.9 RBC 3.82 L Hgb 7.9 L Hct 26.9 L MCV 70 L MCH 20.7 L MCHC 29.4 L RDW Std Deviation 45.5 Plt Count 89 L Neut % (Auto) 75 Lymph % (Auto) 17 [place] % (Auto) 6 Eos % (Auto) 2 Baso % (Auto) 1 Neut # (Auto) 4.4 Lymph # (Auto) 1.0 [place] # (Auto) 0.3 Eos # (Auto) 0.1 Baso # (Auto) 0.1 Immature Gran # (Auto) 0.02 H Absolute Nucleated RBC 0.00 Immature Gran % 0 Nucleated RBC % 0 Sodium 138 Potassium 3.1 L Chloride 105 Carbon Dioxide 21.5 Anion Gap 12 BUN 10 Creatinine 0.5 L Estim Creat Clear Calc 109.5 eGFR > 60 BUN/Creatinine Ratio 20 Glucose 99 Calculated Osmolality 274 L Calcium 8.3 Corrected Calcium 8.5 Total Bilirubin 1.4 H AST 85 H ALT 46 Alkaline Phosphatase 114 Total Protein 7.7 Albumin 3.7 Globulin 4.0 H Albumin/Globulin Ratio 0.9 L HCG, Qual Negative Quality Measures Quality Measures none Assessment & Plan Assessment Current Active Medications: Generic Name Dose Route Start Last Admin Trade Name Freq PRN Reason Stop Dose Admin Acetaminophen 650 mg 11/04/24 12:55 Acetaminophen 325 Mg Tablet PO 12/04/24 12:54 Q6H PRN Fever >100.3 or mild pain 1-3 Chlordiazepoxide HCl 50 mg 11/05/24 14:00 11/06/24 14:40 Chlordiazepoxide Hcl 25 Mg Capsule PO 11/10/24 13:59 50 mg Q8HR DRAGAN Administration Enoxaparin Sodium 40 mg 11/05/24 09:00 11/06/24 08:01 Enoxaparin Sod Inj 40 Mg/0.4 Ml Syringe SC 11/19/24 08:59 40 mg QDAY DRAGAN Administration Folic Acid 1 mg 11/05/24 09:00 11/06/24 08:02 Folic Acid 1 Mg Tablet PO 12/05/24 08:59 1 mg QDAY DRAGAN Administration Dextrose/Sodium Chloride 1,000 mls @ 125 mls/hr 11/06/24 13:45 11/06/24 14:40 D5-Ns IV 12/06/24 13:44 125 mls/hr .Q8H DRAGAN Administration Lorazepam 2 mg 11/04/24 14:58 Lorazepam 2 Mg/Ml Vial IVP 11/09/24 15:59 Q2HR PRN seizures Lorazepam 0.5 mg 11/05/24 09:50 11/06/24 02:24 Lorazepam 2 Mg/Ml Vial IV 11/10/24 09:49 0.5 mg Q2HR PRN Administration CIWA SCORE 8-13 Lorazepam 1 mg 11/05/24 09:50 11/05/24 13:49 Lorazepam 2 Mg/Ml Vial IV 11/10/24 09:49 1 mg Q2HR PRN Administration CIWA SCORE 14-19 Lorazepam 2 mg 11/05/24 09:50 11/05/24 16:30 Lorazepam 2 Mg/Ml Vial IV 11/10/24 09:49 2 mg Q2HR PRN Administration CIWA SCORE 20-25 Magnesium Hydroxide 30 ml 11/04/24 12:55 Milk Of Magnesia Susp 30 Ml Udc PO 12/04/24 12:54 QDAY PRN CONSTIPATION Protocol Ondansetron HCl 4 mg 11/04/24 12:55 Ondansetron Inj 2 Mg/Ml Inj 2 Ml IV 12/04/24 12:54 Q6H PRN NAUSEA OR VOMITING Protocol Pantoprazole Sodium 40 mg 11/05/24 09:00 11/06/24 08:01 Pantoprazole 40 Mg Tablet PO 12/05/24 08:59 40 mg QDAY DRAGAN Administration Thiamine HCl 100 mg 11/04/24 15:15 11/06/24 08:01 Thiamine 100 Mg Tablet PO 12/04/24 15:14 100 mg QDAY DRAGAN Administration Plan A 44-year-old female with past medical history significant for alcohol abuse was brought to the hospital by EMS with chief complaints of seizure-like activity. # Seizures # Likely alcohol withdrawal seizures -Patient was brought to the hospital by EMS with complaints of seizure-like activity -Patient did not have any further seizure episodes in the hospital -Patient is very confused at the time of admission and her history is so unreliable, as she is giving different histories to different doctors -Vitals at the time of admission are stable except for tachycardia with heart rate around 113 -Labs showed WBC 5.8, Hb 8, platelets 77 -Urine toxicology tested positive for meth -Head CT is negative for any acute hemorrhage, stroke Plan -Admitted to telemetry -Started on CIWA protocol -Lorazepam as needed for any seizure activity -Chlordiazepoxide 50 Mg p.o. 3 times daily, will start to downtitrate tomorrow -Started on thiamine and folic acid -Neurochecks every fourth hourly -Consulted Dr. Ni, will appreciate her recommendations -EEG ordered, pending read # Microcytic hypochromic anemia # Iron deficiency anemia Likely due to poor nutritional intake -Hemoglobin at the time of admission is 8, MCV 67, MCH 20.4, MCHC 30.5 -Iron panel - iron deficiency noted, B12- WNL -Started on ferrous sulfate supplementation -Stool for occult blood ordered -Will follow-up with results # Thrombocytopenia Likely due to alcohol abuse -Platelet count at the time of admission is 77 -Will monitor CBC and look for bleeding manifestations # Hypokalemia, hypomagnesemia, resolved -Magnesium at the time of admission is 1.5, potassium is 3 -Potassium is 3.1 as of 11/06/2024, 80 mEq of oral potassium is given, resolving -Likely due to poor nutritional intake in the setting of alcoholism # Hyperbilirubinemia, resolving # Transaminitis, resolving Likely elevated in the setting of alcohol abuse, alcohol hepatitis -At the time of admission, total bilirubin is 1.5, AST 206, ALT 68 --> total bilirubin, AST and ALT are downtrending -will monitor the liver enzymes # Hematuria -Patient found to have 3+ blood and 454 RBC - Patient having menstruation # Methamphetamine abuse # Alcohol abuse -Patient tested positive for methamphetamine and endorsed that she is using meth through inhalation -Patient also reported that she is having alcohol, 1 litre of vodka every day and stopped 2days before coming to the hospital -Referral to social work associate done Hospital Maintenance: Dispo: Telemetry DVT ppx: Lovenox GI ppx: Protonix Diet: Regular IV lines: Peripheral Code status: Full code Patient plan of care was discussed with the attending physician, Dr. Donte Umanzor, PGY1 Attending Provider Attestation/Addendum I attest that I was physically present for the evaluation, physical examination, lab and imaging review of the patient with the residents. I discussed the case with the residents and agree with the findings and plans of care as documented above. At bedside today, patient appears calm.? Has been off restraints.? Continues to be on chlordiazepoxide 50 mg every 8 hours along with lorazepam and CIWA protocol.? Vital signs are stable except for mild tachycardia.? Potassium level noted to be 3.1, repleted accordingly.? Liver function are improving.? Patient has been started on thiamine and folate.? We will also started on IV hydration.? No new seizure episodes.? CIWA score this afternoon was 6.? We will continue to monitor closely. Alber Kent MD
[2024-11-06 16:00] VITALS: BP 106/69; PULSE 101; PULSE 99; RESP 18; TEMP 36.6; O2SAT 98
[2024-11-06] MEDS: FERROUS SULF 325 MG TABLET PO (16:33)
[2024-11-06 20:00] VITALS: BP 113/97; PULSE 110; PULSE 114; RESP 21; TEMP 36.8; O2SAT 98
[2024-11-06] MEDS: NICOTINE PATCH 21 MG/24 HR PATCH.TD24 TOP (20:13)
[2024-11-07] VITALS (10 sets, daily range): BP systolic 98–137; BP diastolic 70–97; PULSE 52–110; RESP 16–23; TEMP -13.2–36.9; O2SAT 96–99; BMI 28.4; BMI 28.5
[2024-11-07 05:57] LABS: Basophils # (Auto) 0.1 Thou/mm3 (0.0-0.2); Basophils % (Auto) 1 % (0-2.5); Eosinophils # (Auto) 0.1 Thou/mm3 (0.0-0.5); Eosinophils % (Auto) 2 % (0-10); Hematocrit 22.9 % (36.0-46.0); Immature Granulocytes % (Auto) 0 % (0-0); Immature Granulocytes Auto 0.02 Thou/mm3 (0.00-0.00); Lymphocytes # (Auto) 1.2 Thou/mm3 (1.0-4.8); Lymphocytes % (Auto) 23 % (10-50); Mean Corpuscular HGB Conc 30.1 g/dl (31.0-37.0); Mean Corpuscular Hemoglobin 20.7 pg (25.0-35.0); Mean Corpuscular Volume 69 fL (80-100); Monocytes # (Auto) 0.5 Thou/mm3 (0.0-0.8); Monocytes % (Auto) 9 % (0-12); Neutrophils # (Auto) 3.5 Thou/mm3 (1.8-7.7); Neutrophils % (Auto) 65 % (37-80); Nucleated Red Blood Cell % 0 /100 WBC (0); Platelet Count 115 Thou/mm3 (140-440); RDW Standard Deviation 44.2 fL (36.4-46.3); Red Blood Count 3.33 Miln/mm3 (4.00-5.20); White Blood Count 5.4 Thou/mm3 (3.6-11.0)
[2024-11-07 06:18] LABS: Hemoglobin 6.9 g/dL (12.0-16.0)
[2024-11-07 06:29] LABS: Alanine Aminotransferase 34 U/L (10-49); Albumin, Serum 3.3 gm/dL (3.5-5.0); Alkaline Phosphatase 107 U/L (46-116); Anion Gap 7 (7-16); Aspartate Amino Transferase 59 U/L (0-34); BUN/Creatinine Ratio 22 Ratio (12-20); Bilirubin,Total 0.9 mg/dL (0.3-1.2); Blood Urea Nitrogen 13 mg/dL (9-23); Calcium 8.4 mg/dL (8.3-10.6); Carbon Dioxide 22.8 mMol/L (20.0-31.0); Chloride 106 mMol/L (98-107); Creatinine (Component) 0.6 mg/dL (0.6-1.3); Globulin 3.2 gm/dL (2.3-3.5); Glucose 129 mg/dL (74-106); Magnesium 1.5 mg/dL (1.6-2.6); Osmolality,Calculated 274 (275-295); Potassium 3.6 mMol/L (3.4-5.1); Sodium 136 mMol/L (136-145); Total Protein 6.5 gm/dL (5.7-8.2); eGFR > 60 See Note
[2024-11-07 07:20] LABS: Hematocrit 23.1 % (36.0-46.0)
[2024-11-07 07:27] LABS: Hemoglobin 6.8 g/dL (12.0-16.0)
[2024-11-07] MEDS: PANTOPRAZOLE 40 MG TABLET PO (08:54)
[2024-11-07] MEDS: Magnesium Sulfate 4 GM Ivpb 4 GM/50 ML BAG IV (08:54)
[2024-11-07] MEDS: chlordiazePOXIDE HCl 25 MG CAPSULE 50 MG PO ×2 (08:54→20:06)
[2024-11-07] MEDS: THIAMINE 100 MG TABLET PO (08:54)
[2024-11-07] MEDS: FOLIC ACID 1 MG TABLET PO (08:54)
--- NOTE | 2024-11-07 09:10 | ESPR_ITS ---
Documentation for date of: 11/07/24 Subjective Subjective Interval history: No overnight acute events This morning the bedside patient is AO x 3, respond to questions properly, CIWA 0 stated that she feeling well denied any headache, tremors, visual or auditory hallucinations. No new seizures since admission Exam Vital Signs Temp Pulse Resp BP Pulse Ox O2 Del Method 98.4 F 98 18 121/87 H 96 Room Air 11/07/24 08:00 11/07/24 08:00 11/07/24 08:00 11/07/24 08:00 11/07/24 08:00 11/07/24 08:00 Narrative Exam General: Confused, well appearing, somnolent HEENT: NC/AT, PERRL, EOMI, Good conjugate gaze, moist mucous membranes Neck: Supple, No masses, No adenopathy, carotid pulse 2+ bilaterally without bruits, No JVD, normal range of motion. Chest: Symmetrical, atraumatic, and with equal expansion , Nontender on palpation no deformity and no crepitus. CVS: S1 and S2 present, Regular rate and rhythm, No murmurs, rubs or gallops perceived during auscultation. Lungs: Normal respiratory effort, CTAB, no wheezing, rhonchi or rales perceived during auscultation, No intercostal or subcostal retraction. Abdomen : Soft, no tenderness to palpation, no guarding ,no rebound, +BS, no organomegaly. Extremities: No edema, warm well perfused, normal tone and ROM, strength and sensation intact, cap refill less than 2, +2 dp equal bilaterally, able to move all 4 extremities spontaneously. Skin: Intact, no rashes, no lesions, no erythema or jaundice noted Neuro: AO x 3, no upper extremity tremors noted, reflex symmetric and sensation normal, no focal neurologic deficits noted, GCS 15 Psych: Appropriate mood and affect. Objective Labs 11/07/24 17:46 11/07/24 04:26 Labs: Laboratory Results - last 24 hr 11/07/24 11/07/24 04:26 06:52 WBC 5.4 RBC 3.33 L Hgb 6.9 L* 6.8 L* Hct 22.9 L 23.1 L MCV 69 L MCH 20.7 L MCHC 30.1 L RDW Std Deviation 44.2 Plt Count 115 L D Neut % (Auto) 65 Lymph % (Auto) 23 [place] % (Auto) 9 Eos % (Auto) 2 Baso % (Auto) 1 Neut # (Auto) 3.5 Lymph # (Auto) 1.2 [place] # (Auto) 0.5 Eos # (Auto) 0.1 Baso # (Auto) 0.1 Immature Gran # (Auto) 0.02 H Absolute Nucleated RBC 0.00 Immature Gran % 0 Nucleated RBC % 0 Sodium 136 Potassium 3.6 D Chloride 106 Carbon Dioxide 22.8 Anion Gap 7 BUN 13 Creatinine 0.6 Estim Creat Clear Calc 92.0 eGFR > 60 BUN/Creatinine Ratio 22 H Glucose 129 H Calculated Osmolality 274 L Calcium 8.4 Corrected Calcium 9.0 Magnesium 1.5 L Total Bilirubin 0.9 D AST 59 H ALT 34 Alkaline Phosphatase 107 Total Protein 6.5 Albumin 3.3 L Globulin 3.2 Albumin/Globulin Ratio 1.0 L Blood Type A Positive Antibody Screen NEGATIVE Blood Bank Wristband ID Yes Quality Measures Quality Measures none Assessment & Plan Assessment Current Active Medications: Generic Name Dose Route Start Last Admin Trade Name Freq PRN Reason Stop Dose Admin Acetaminophen 650 mg 11/04/24 12:55 Acetaminophen 325 Mg Tablet PO 12/04/24 12:54 Q6H PRN Fever >100.3 or mild pain 1-3 Chlordiazepoxide HCl 50 mg 11/06/24 21:00 11/07/24 08:54 Chlordiazepoxide Hcl 25 Mg Capsule PO 11/11/24 20:59 50 mg BID DRAGAN Administration Enoxaparin Sodium 40 mg 11/05/24 09:00 11/07/24 08:47 Enoxaparin Sod Inj 40 Mg/0.4 Ml Syringe SC 11/19/24 08:59 Not Given QDAY DRAGAN Ferrous Sulfate 325 mg 11/06/24 15:45 11/06/24 16:33 Ferrous Sulf 325 Mg Tablet PO 12/06/24 15:44 325 mg QOD DRAGAN Administration Folic Acid 1 mg 11/05/24 09:00 11/07/24 08:54 Folic Acid 1 Mg Tablet PO 12/05/24 08:59 1 mg QDAY DRAGAN Administration Magnesium Sulfate 4 gm in 50 mls @ 12.5 mls/hr 11/07/24 08:25 11/07/24 08:54 Magnesium Sulfate Ivpb IV 11/07/24 12:24 12.5 mls/hr X1 ONE Administration Lorazepam 2 mg 11/04/24 14:58 Lorazepam 2 Mg/Ml Vial IVP 11/09/24 15:59 Q2HR PRN seizures Lorazepam 0.5 mg 11/05/24 09:50 11/06/24 02:24 Lorazepam 2 Mg/Ml Vial IV 11/10/24 09:49 0.5 mg Q2HR PRN Administration CIWA SCORE 8-13 Lorazepam 1 mg 11/05/24 09:50 11/05/24 13:49 Lorazepam 2 Mg/Ml Vial IV 11/10/24 09:49 1 mg Q2HR PRN Administration CIWA SCORE 14-19 Lorazepam 2 mg 11/05/24 09:50 11/05/24 16:30 Lorazepam 2 Mg/Ml Vial IV 11/10/24 09:49 2 mg Q2HR PRN Administration CIWA SCORE 20-25 Magnesium Hydroxide 30 ml 11/04/24 12:55 Milk Of Magnesia Susp 30 Ml Udc PO 12/04/24 12:54 QDAY PRN CONSTIPATION Protocol Ondansetron HCl 4 mg 11/04/24 12:55 Ondansetron Inj 2 Mg/Ml Inj 2 Ml IV 12/04/24 12:54 Q6H PRN NAUSEA OR VOMITING Protocol Pantoprazole Sodium 40 mg 11/05/24 09:00 11/07/24 08:54 Pantoprazole 40 Mg Tablet PO 12/05/24 08:59 40 mg QDAY DRAGAN Administration Thiamine HCl 100 mg 11/04/24 15:15 11/07/24 08:54 Thiamine 100 Mg Tablet PO 12/04/24 15:14 100 mg QDAY DRAGAN Administration Plan #Alcohol dependence with withdrawal Patient was brought to the hospital by EMS with complaints of seizure-like activity No seizure witnessed during hospital admission Head CT was negative for hemorrhage, masses or midline shift Plan: - Continue CIWA protocol - Continue lorazepam IV as needed for breakthrough seizures - Delirium tremens preventive measures - Pending EEG report to rule out seizure activity #Microcytic hypochromic anemia #Acute blood loss anemia #Iron deficiency anemia #Thrombocytopenia #Hyperbilirubinemia #Transaminitis #Hematuria #Methamphetamine abuse #Alcohol abuse Plan: ? Continue management per primary team Patient discussed with my attending Dr Raine Saeed MD PGY-3 Disclaimer: Despite multiple revisions, due to the dictation software being used, the document bellow may not be free of grammatical errors including phonetic/typographic errors. However, this does not deter from our commitment to providing health care in the patient's best interest in mind. Attending Provider Attestation/Addendum I personally have seen and examined the patient at the bedside and agree with resident's findings, assessment and plan of care. Patient is neurologically stable for discharge. Advised her to quit drinking alcohol completely to prevent recurrence.
--- NOTE | 2024-11-07 10:47 | PC.SS ---
SS follow up note; Patient's HMG is low, possible discharge tomorrow, SS followed up with discharge plan with patient's life partner, Jeovanny and discharge plan is for patient to discharge home, he will be providing transportation.
[2024-11-07] MEDS: POLYETHYLENE GLYCOL 17 GM PACKET PO (10:52)
--- NOTE | 2024-11-07 16:13 | ESPR_ITS ---
<Statement entered by Carl Hernandez MD - 11/08/24 07:47> Senior Resident Attestation: I supervised/discussed management plan with investigator internal revenue physician Dr. Umanzor, and was involved in the care of this patient. I personally saw and examined the patient and discussed the assessment and plan with the entire medicine team, including my attending. I agree with the assessment and plan as documented. Patient's hemoglobin was low in the morning at 6.9, confirmed by repeat H&H, 1 unit of PRBC was transfused FOBT was ordered. Patient is off restraints however remains slightly confused. Patient's care was discussed with attending physician, Dr. Collier. Carl Hernandez MD PGY-2. Documentation for date of: 11/07/24 Subjective Subjective Interval history: Patient is seen and examined at bedside No acute overnight events. Patient appears more alert and awake today Patient found to have low hemoglobin, 6.8 this morning Stool for occult blood is ordered. 1 PRBC transfusion was done Ordered posttransfusion H&H. Ordered laxative as patient does not have bowel movement since the hospital admission Exam Vital Signs Temp Pulse Resp BP Pulse Ox O2 Del Method 98.3 F 106 H 20 128/76 98 Room Air 11/07/24 15:40 11/07/24 15:40 11/07/24 15:40 11/07/24 15:40 11/07/24 15:40 11/07/24 12:00 Narrative Exam General: appears alert today and answering all the questions appropriately HEENT: Normocephalic, atraumatic, mucous membranes moist. Heart: Tachycardia and Regular rhythm, no murmurs. Lungs: Clear to auscultation with no wheezing or crackles. Abdomen: Soft, nondistended, nontender, positive bowel sounds. ?No guarding or rebound tenderness. Neurologic: Alert, no gross neurological deficit, and patient able to move all 4 extremities. Extremities: No edema. Surgical scar noted on right lower extremity Skin: No rash or ecchymoses. Objective Labs 11/08/24 05:15 11/08/24 05:15 Labs: Laboratory Results - last 24 hr 11/07/24 11/07/24 04:26 06:52 WBC 5.4 RBC 3.33 L Hgb 6.9 L* 6.8 L* Hct 22.9 L 23.1 L MCV 69 L MCH 20.7 L MCHC 30.1 L RDW Std Deviation 44.2 Plt Count 115 L D Neut % (Auto) 65 Lymph % (Auto) 23 [place] % (Auto) 9 Eos % (Auto) 2 Baso % (Auto) 1 Neut # (Auto) 3.5 Lymph # (Auto) 1.2 [place] # (Auto) 0.5 Eos # (Auto) 0.1 Baso # (Auto) 0.1 Immature Gran # (Auto) 0.02 H Absolute Nucleated RBC 0.00 Immature Gran % 0 Nucleated RBC % 0 Sodium 136 Potassium 3.6 D Chloride 106 Carbon Dioxide 22.8 Anion Gap 7 BUN 13 Creatinine 0.6 Estim Creat Clear Calc 92.0 eGFR > 60 BUN/Creatinine Ratio 22 H Glucose 129 H Calculated Osmolality 274 L Calcium 8.4 Corrected Calcium 9.0 Magnesium 1.5 L Total Bilirubin 0.9 D AST 59 H ALT 34 Alkaline Phosphatase 107 Total Protein 6.5 Albumin 3.3 L Globulin 3.2 Albumin/Globulin Ratio 1.0 L Blood Type A Positive Antibody Screen NEGATIVE Crossmatch See Detail Blood Bank Wristband ID Yes Quality Measures Quality Measures none Assessment & Plan Assessment Current Active Medications: Generic Name Dose Route Start Last Admin Trade Name Freq PRN Reason Stop Dose Admin Acetaminophen 650 mg 11/04/24 12:55 Acetaminophen 325 Mg Tablet PO 12/04/24 12:54 Q6H PRN Fever >100.3 or mild pain 1-3 Chlordiazepoxide HCl 50 mg 11/06/24 21:00 11/07/24 08:54 Chlordiazepoxide Hcl 25 Mg Capsule PO 11/11/24 20:59 50 mg BID DRAGAN Administration Ferrous Sulfate 325 mg 11/06/24 15:45 11/06/24 16:33 Ferrous Sulf 325 Mg Tablet PO 12/06/24 15:44 325 mg QOD DRAGAN Administration Folic Acid 1 mg 11/05/24 09:00 11/07/24 08:54 Folic Acid 1 Mg Tablet PO 12/05/24 08:59 1 mg QDAY DRAGAN Administration Lorazepam 0.5 mg 11/07/24 16:08 Lorazepam 0.5 Mg Tablet PO 11/12/24 16:07 Q4HR PRN CIWA Score 2-6 Lorazepam 1 mg 11/07/24 16:08 Lorazepam 0.5 Mg Tablet PO 11/12/24 16:07 Q4HR PRN CIWA SCORE 7-11 Lorazepam 2 mg 11/07/24 16:08 Lorazepam 0.5 Mg Tablet PO 11/12/24 16:07 Q4HR PRN CIWA SCORE 12-15 Magnesium Hydroxide 30 ml 11/04/24 12:55 Milk Of Magnesia Susp 30 Ml Udc PO 12/04/24 12:54 QDAY PRN CONSTIPATION Protocol Ondansetron HCl 4 mg 11/04/24 12:55 Ondansetron Inj 2 Mg/Ml Inj 2 Ml IV 12/04/24 12:54 Q6H PRN NAUSEA OR VOMITING Protocol Pantoprazole Sodium 40 mg 11/05/24 09:00 11/07/24 08:54 Pantoprazole 40 Mg Tablet PO 12/05/24 08:59 40 mg QDAY DRAGAN Administration Polyethylene Glycol 17 gm 11/08/24 09:00 Polyethylene Glycol 17 Gm Packet PO 12/08/24 08:59 QDAY DRAGAN Sennosides 1 tab 11/07/24 15:15 Senna Tablet PO 12/07/24 15:14 QDAY PRN CONSTIPATION Protocol Thiamine HCl 100 mg 11/04/24 15:15 11/07/24 08:54 Thiamine 100 Mg Tablet PO 12/04/24 15:14 100 mg QDAY DRAGAN Administration Plan A 44-year-old female with past medical history significant for alcohol abuse was brought to the hospital by EMS with chief complaints of seizure-like activity. # Seizures # Likely alcohol withdrawal seizures -Patient was brought to the hospital by EMS with complaints of seizure-like activity -Patient did not have any further seizure episodes in the hospital -Patient is very confused at the time of admission and her history is so unreliable, as she is giving different histories to different doctors -Vitals at the time of admission are stable except for tachycardia with heart rate around 113 -Labs showed WBC 5.8, Hb 8, platelets 77 -Urine toxicology tested positive for meth -Head CT is negative for any acute hemorrhage, stroke Plan -Admitted to telemetry -Started on CIWA protocol -Lorazepam as needed for any seizure activity -Chlordiazepoxide 50 Mg p.o. 2 times daily, will start to downtitrate tomorrow -Started on thiamine and folic acid -Neurochecks every fourth hourly -Consulted Dr. Ni, will appreciate her recommendations -EEG ordered, pending read # Microcytic hypochromic anemia # Iron deficiency anemia # ? Acute blood loss anemia Likely due to poor nutritional intake -Hemoglobin at the time of admission is 8, MCV 67, MCH 20.4, MCHC 30.5 -Iron panel - iron deficiency noted, B12- WNL -Started on ferrous sulfate supplementation Plan - On, Hb is 6.8, repeat Hb confirmed that-started on 1 PRBC transfusion -Stool for occult blood ordered, pending -Will follow-up with results # Thrombocytopenia Likely due to alcohol abuse -Platelet count at the time of admission is 77 -Will monitor CBC and look for bleeding manifestations # Hypokalemia, hypomagnesemia, resolved -Magnesium at the time of admission is 1.5, potassium is 3 -Potassium is 3.1 as of 11/06/2024, 80 mEq of oral potassium is given, resolving -Likely due to poor nutritional intake in the setting of alcoholism # Hyperbilirubinemia, resolving # Transaminitis, resolving Likely elevated in the setting of alcohol abuse, alcohol hepatitis -At the time of admission, total bilirubin is 1.5, AST 206, ALT 68 --> total bilirubin, AST and ALT are downtrending -will monitor the liver enzymes # Hematuria -Patient found to have 3+ blood and 454 RBC - Patient having menstruation # Methamphetamine abuse # Alcohol abuse -Patient tested positive for methamphetamine and endorsed that she is using meth through inhalation -Patient also reported that she is having alcohol, 1 litre of vodka every day and stopped 2days before coming to the hospital -Referral to social services coordinator done Hospital Maintenance: Dispo: Telemetry DVT ppx: Discontinue in view of dropped hemoglobin on 11/07/2024 GI ppx: Protonix Diet: Regular IV lines: Peripheral Code status: Full code Patient plan of care was discussed with the attending physician, Dr. Collier and senior resident Dr. David Umanzor, PGY1 Attending Provider Attestation/Addendum I, [place] Collier, DO, attest that I was physically present for the aguilar portions of the service and evaluated the patient with the resident and I reviewed and discussed the case with the resident and agree with the resident's findings and plans of care as documented above Patient seen and evaluated this AM. Hgb noted to drop from 7.9 to 6.5. Repeat Hgb was 6.8. Patient has not had a BM, will order stool occult and transfuse 1 unit of pRBCs. Will f/u with posttransfusion H/H. Patient has no active complaints otherwise. CIWA score of 0
[2024-11-07 18:04] LABS: Hematocrit 28.6 % (36.0-46.0)
[2024-11-08] VITALS: BP 141/96; PULSE 104; PULSE 107; RESP 22; TEMP 36.4; O2SAT 98
[2024-11-08] MEDS: LORazepam 0.5 MG TABLET PO (02:45)
[2024-11-08 04:00] VITALS: BP 136/85; PULSE 109; PULSE 97; RESP 17; TEMP 36.5; O2SAT 98
[2024-11-08 06:00] VITALS: BMI 29.3
[2024-11-08 06:10] LABS: Basophils # (Auto) 0.1 Thou/mm3 (0.0-0.2); Basophils % (Auto) 1 % (0-2.5); Eosinophils # (Auto) 0.1 Thou/mm3 (0.0-0.5); Eosinophils % (Auto) 2 % (0-10); Hematocrit 27.5 % (36.0-46.0); Immature Granulocytes % (Auto) 0 % (0-0); Immature Granulocytes Auto 0.02 Thou/mm3 (0.00-0.00); Lymphocytes # (Auto) 1.1 Thou/mm3 (1.0-4.8); Lymphocytes % (Auto) 21 % (10-50); Mean Corpuscular HGB Conc 30.9 g/dl (31.0-37.0); Mean Corpuscular Volume 75 fL (80-100); Monocytes # (Auto) 0.6 Thou/mm3 (0.0-0.8); Monocytes % (Auto) 11 % (0-12); Neutrophils # (Auto) 3.5 Thou/mm3 (1.8-7.7); Neutrophils % (Auto) 65 % (37-80); Nucleated Red Blood Cell % 0 /100 WBC (0); Platelet Count 143 Thou/mm3 (140-440); RDW Standard Deviation 60.4 fL (36.4-46.3); Red Blood Count 3.69 Miln/mm3 (4.00-5.20); White Blood Count 5.4 Thou/mm3 (3.6-11.0)
[2024-11-08 06:13] LABS: Hemoglobin 8.5 g/dL (12.0-16.0)
[2024-11-08 06:44] LABS: Alanine Aminotransferase 32 U/L (10-49); Albumin, Serum 3.3 gm/dL (3.5-5.0); Albumin/Globulin Ratio 0.9 (1.2-2.2); Alkaline Phosphatase 108 U/L (46-116); Anion Gap 9 (7-16); Aspartate Amino Transferase 57 U/L (0-34); BUN/Creatinine Ratio 17 Ratio (12-20); Blood Urea Nitrogen 10 mg/dL (9-23); Calcium 8.8 mg/dL (8.3-10.6); Calcium (Corrected) 9.4 mg/dL (8.5-10.1); Carbon Dioxide 24.5 mMol/L (20.0-31.0); Chloride 105 mMol/L (98-107); Creatinine (Component) 0.6 mg/dL (0.6-1.3); Estimated Creatinine Clearance 89.4 mL/min (>60); Globulin 3.5 gm/dL (2.3-3.5); Glucose 103 mg/dL (74-106); Osmolality,Calculated 274 (275-295); Potassium 3.5 mMol/L (3.4-5.1); Sodium 138 mMol/L (136-145); Total Protein 6.8 gm/dL (5.7-8.2); eGFR > 60 See Note
[2024-11-08 08:00] VITALS: BP 128/91; PULSE 101; PULSE 94; RESP 20; TEMP 36.3; O2SAT 98
[2024-11-08] MEDS: THIAMINE 100 MG TABLET PO (08:57)
[2024-11-08] MEDS: FERROUS SULF 325 MG TABLET PO (08:57)
[2024-11-08] MEDS: NAPH,KPH MBDB 1 PACKET (1.5 GM) PO (08:57)
[2024-11-08] MEDS: PANTOPRAZOLE 40 MG TABLET PO (08:57)
[2024-11-08] MEDS: POLYETHYLENE GLYCOL 17 GM PACKET PO (08:57)
[2024-11-08] MEDS: chlordiazePOXIDE HCl 25 MG CAPSULE PO (08:58)
[2024-11-08] MEDS: FOLIC ACID 1 MG TABLET PO (08:58)
--- NOTE | 2024-11-08 11:15 | PD.RESPRO ---
Documentation for date of: 11/08/24 Subjective Subjective Interval history: No overnight acute events This morning the bedside patient is AOx3, respond to questions properly, CIWA 0 stated that she feeling well denied any headache, tremors, visual or auditory hallucinations. No new seizures since admission, gait was evaluated last night without any problems during ambulation. Exam Vital Signs Temp Pulse Resp BP Pulse Ox O2 Del Method 97.4 F 101 H 20 128/91 H 98 Room Air 11/08/24 08:00 11/08/24 08:00 11/08/24 08:00 11/08/24 08:00 11/08/24 08:00 11/08/24 08:00 Narrative Exam General: Confused, well appearing, somnolent HEENT: NC/AT, PERRL, EOMI, Good conjugate gaze, moist mucous membranes Neck: Supple, No masses, No adenopathy, carotid pulse 2+ bilaterally without bruits, No JVD, normal range of motion. Chest: Symmetrical, atraumatic, and with equal expansion , Nontender on palpation no deformity and no crepitus. CVS: S1 and S2 present, Regular rate and rhythm, No murmurs, rubs or gallops perceived during auscultation. Lungs: Normal respiratory effort, CTAB, no wheezing, rhonchi or rales perceived during auscultation, No intercostal or subcostal retraction. Abdomen : Soft, no tenderness to palpation, no guarding ,no rebound, +BS, no organomegaly. Extremities: No edema, warm well perfused, normal tone and ROM, strength and sensation intact, cap refill less than 2, +2 dp equal bilaterally, able to move all 4 extremities spontaneously. Skin: Intact, no rashes, no lesions, no erythema or jaundice noted Neuro: AO x 3, no upper extremity tremors noted, reflex symmetric and sensation normal, no focal neurologic deficits noted, GCS 15, gait: No ataxia, no auditory or visual hallucinations Psych: Appropriate mood and affect. Objective Labs 11/08/24 05:15 11/08/24 05:15 Labs: Laboratory Results - last 24 hr 11/07/24 11/07/24 11/08/24 06:52 17:46 05:15 WBC 5.4 RBC 3.69 L Hgb 9.0 L D 8.5 L Hct 28.6 L 27.5 L MCV 75 L MCH 23.0 L MCHC 30.9 L RDW Std Deviation 60.4 H Plt Count 143 D Neut % (Auto) 65 Lymph % (Auto) 21 [place] % (Auto) 11 Eos % (Auto) 2 Baso % (Auto) 1 Neut # (Auto) 3.5 Lymph # (Auto) 1.1 [place] # (Auto) 0.6 Eos # (Auto) 0.1 Baso # (Auto) 0.1 Immature Gran # (Auto) 0.02 H Absolute Nucleated RBC 0.00 Immature Gran % 0 Nucleated RBC % 0 Sodium 138 Potassium 3.5 Chloride 105 Carbon Dioxide 24.5 Anion Gap 9 BUN 10 Creatinine 0.6 Estim Creat Clear Calc 89.4 eGFR > 60 BUN/Creatinine Ratio 17 Glucose 103 Calculated Osmolality 274 L Calcium 8.8 Corrected Calcium 9.4 Total Bilirubin 1.0 AST 57 H ALT 32 Alkaline Phosphatase 108 Total Protein 6.8 Albumin 3.3 L Globulin 3.5 Albumin/Globulin Ratio 0.9 L Blood Type A Positive Antibody Screen NEGATIVE Crossmatch See Detail Blood Bank Wristband ID Yes Quality Measures Quality Measures none Assessment & Plan Assessment Current Active Medications: Generic Name Dose Route Start Last Admin Trade Name Freq PRN Reason Stop Dose Admin Acetaminophen 650 mg 11/04/24 12:55 Acetaminophen 325 Mg Tablet PO 12/04/24 12:54 Q6H PRN Fever >100.3 or mild pain 1-3 Chlordiazepoxide HCl 25 mg 11/08/24 09:00 11/08/24 08:58 Chlordiazepoxide Hcl 25 Mg Capsule PO 11/13/24 08:59 25 mg BID DRAGAN Administration Ferrous Sulfate 325 mg 11/06/24 15:45 11/08/24 08:57 Ferrous Sulf 325 Mg Tablet PO 12/06/24 15:44 325 mg QOD DRAGAN Administration Folic Acid 1 mg 11/05/24 09:00 11/08/24 08:58 Folic Acid 1 Mg Tablet PO 12/05/24 08:59 1 mg QDAY DRAGAN Administration Lorazepam 0.5 mg 11/07/24 16:08 11/08/24 02:45 Lorazepam 0.5 Mg Tablet PO 11/12/24 16:07 0.5 mg Q4HR PRN Administration CIWA Score 2-6 Lorazepam 1 mg 11/07/24 16:08 Lorazepam 0.5 Mg Tablet PO 11/12/24 16:07 Q4HR PRN CIWA SCORE 7-11 Lorazepam 2 mg 11/07/24 16:08 Lorazepam 0.5 Mg Tablet PO 11/12/24 16:07 Q4HR PRN CIWA SCORE 12-15 Magnesium Hydroxide 30 ml 11/04/24 12:55 Milk Of Magnesia Susp 30 Ml Udc PO 12/04/24 12:54 QDAY PRN CONSTIPATION Protocol Ondansetron HCl 4 mg 11/04/24 12:55 Ondansetron Inj 2 Mg/Ml Inj 2 Ml IV 12/04/24 12:54 Q6H PRN NAUSEA OR VOMITING Protocol Pantoprazole Sodium 40 mg 11/05/24 09:00 11/08/24 08:57 Pantoprazole 40 Mg Tablet PO 12/05/24 08:59 40 mg QDAY DRAGAN Administration Polyethylene Glycol 17 gm 11/08/24 09:00 11/08/24 08:57 Polyethylene Glycol 17 Gm Packet PO 12/08/24 08:59 17 gm QDAY DRAGAN Administration Sennosides 1 tab 11/07/24 15:15 Senna Tablet PO 12/07/24 15:14 QDAY PRN CONSTIPATION Protocol Thiamine HCl 100 mg 11/04/24 15:15 11/08/24 08:57 Thiamine 100 Mg Tablet PO 12/04/24 15:14 100 mg QDAY DRAGAN Administration Plan #Alcohol dependence with withdrawal Patient was brought to the hospital by EMS with complaints of seizure-like activity No seizure witnessed during hospital admission Head CT was negative for hemorrhage, masses or midline shift CIWA 0 no visual or auditory hallucinations, tremors or ataxia during ambulation Plan: Per neurology standpoint patient can be discharged - Continue CIWA protocol - Continue lorazepam IV as needed for breakthrough seizures - Delirium tremens preventive measures - Avoid alcohol to prevent recurrence of withdrawals - Continue thiamine and folic acid #Microcytic hypochromic anemia #Acute blood loss anemia #Iron deficiency anemia #Thrombocytopenia #Hyperbilirubinemia #Transaminitis #Hematuria #Methamphetamine abuse #Alcohol abuse Plan: ? Continue management per primary team Patient discussed with my attending Dr Raine Saeed MD PGY-3 Disclaimer: Despite multiple revisions, due to the dictation software being used, the document bellow may not be free of grammatical errors including phonetic/typographic errors. However, this does not deter from our commitment to providing health care in the patient's best interest in mind. Attending Provider Attestation/Addendum I personally have seen and examined the patient at the bedside and I agree with resident findings, assessment and plan of care. Patient is neurologically stable for discharge home A1c her as needed. Advised her about the importance of complete alcohol cessation.
[2024-11-08 12:00] VITALS: BP 122/79; PULSE 101; PULSE 105; RESP 17; TEMP 36.5; O2SAT 98
[2024-11-08] MEDS: LACTULOSE SYRUP 20 GM/30 ML UDC PO (14:39)
[2024-11-08 16:00] VITALS: BP 126/86; PULSE 100; PULSE 101; RESP 18; TEMP 36.3; O2SAT 98
--- NOTE | 2024-11-08 16:35 | ESDS_ITS ---
<Statement entered by Florida Collier DO - 11/09/24 08:03> I, Florida Collier DO, attest that I was physically present for the aguilar portions of the service and evaluated the patient with the resident and I reviewed and discussed the case with the resident and agree with the resident's findings and plans of care as documented above Planned Discharge Date 11/08/24 DS: Providers Provider Date of admission: 11/04/24 11:56 Primary care physician: Physician No Primary/Family Admitting Provider: Alber Kent MD Attending Provider on Admission: Florida Collier DO Consults: 11/04/24 15:00 Consult to Neurology / Tele-Neurology Routine Comment: possible seizure activity Consulting Provider: Cheng Ni 11/04/24 20:32 Referral Smoking Cessation Counseling Routine Comment: Smoking Cessation Education Needed Health Equity Referral - Knowledge Deficit Routine Comment: Positive screening for knowledge deficit needs. Health Equity Referral - Transportation Routine Comment: Positive screening for transportation needs. Attending Provider on DC: Dionicio Umanzor MD Discharging Provider: Dionicio Umanzor MD DS: Diagnosis Problem List Completed Was Problem List Reviewed/Reconciled?: Yes Hospital Course Hospital Course Hospital course: A 44-year-old female with past medical history significant for alcohol abuse was brought to the hospital by EMS with chief complaints of seizure-like activity and admitted in the hospital for Alcohol withdrawal Hospital course: Vitals at the time of admission are stable.. Labs showed mild anemia, thrombocytopenia, transaminitis at the time of admission. Urine analysis showed turbid urine with 3+ protein, 3+ blood, 454 RBC, 13 WBC. Toxicology tested positive for methamphetamine. Head CT is negative for acute hemorrhage, stroke. Abdominal ultrasound showed normal gallbladder and fatty liver. Found to have iron deficiency anemia and started on iron supplementation. Dr. Ni was consulted in view of seizures and she agreed with the alcohol withdrawal treatment. EEG was done. Patient was treated with CIWA protocol during the hospital stay. On 11/07/2024, patient was found to have a hemoglobin of 6.8 for which patient was given 1 unit of PRBC transfusion. Stool for occult blood came back negative. Labs done during the hospital stay showed improved platelet coun t and down trended LFTs. Patient is discharged to the home with the following medications and recommendations -Follow-up with PCP within 1 week of discharge. If you do not have appointment, please follow-up with the [facility] with Dr. Umanzor. Call [phone] to make an appointment. -Continue iron supplements, Thiamine -Recommended to stop alcohol and methemphatemine abuse -Return to ED if symptoms persist or return # Alcohol withdrawal seizures # Microcytic hypochromic anemia # Iron deficiency anemia # Thrombocytopenia, resolved # Hypokalemia, hypomagnesemia, resolved # Hyperbilirubinemia, resolved # Transaminitis, resolved # Methamphetamine abuse # Chronic Alcohol use Patient plan of care was discussed with the attending physician, Dr. Collier and senior resident Dr. David Umanzor, PGY1 Time Spent with Patient Time attestation: Total time spent providing and/or coordinating discharge services: Time spent: Greater than 30 minutes Exam Vital Signs Temp Pulse Resp BP Pulse Ox O2 Del Method 97.3 F 100 18 126/86 H 98 Room Air 11/08/24 16:00 11/08/24 16:11/08/24 16:00 11/08/24 16:00 11/08/24 16:11/08/24 16:00 Narrative Exam General: Alert and awake. HEENT: Normocephalic, atraumatic, mucous membranes moist. Heart: Tachycardia and Regular rhythm, no murmurs. Lungs: Clear to auscultation with no wheezing or crackles. Abdomen: Soft, nondistended, nontender, positive bowel sounds. ?No guarding or rebound tenderness. Neurologic: Alert, no gross neurological deficit, and patient able to move all 4 extremities. Extremities: No edema. Surgical scar noted on right lower extremity Skin: No rash or ecchymoses. Discharge Plan Plan Patient Disposition: HOME (Self Care) Patient condition on transfer: Stable Care Plan Goals: -Follow-up with PCP within 1 week of discharge. If you do not have appointment, please follow-up with the [facility] with Dr. Umanzor. Call [phone] to make an appointment. -Continue iron supplements, Thiamine -Recommended to stop alcohol and methemphatemine abuse -Return to ED if symptoms persist or return Prescriptions/Referrals Prescriptions/Med Rec: New ferrous sulfate 324 mg (65 mg iron) tablet,delayed release (DR/EC) 324 mg PO QDAY Qty: 30 3RF thiamine HCl (vitamin B1) 50 mg tablet 50 mg PO QDAY Qty: 20 0RF Referrals: No Primary/Family,Physician [Primary Care Provider] - Patient/Caregiver Discharge Instructions Education Materials: Alcoholism How to be Part of ..., Alcoholism Resources, Alcohol Addiction, Alcohol Withdrawal: What to Expect, Addiction: Your Treatment Options Print Language: Mauritanian Stand Alone Forms: Fernanda Award Info., Patient Portal Info Letter Discharge Order Discharge Orders: Discharge (Routine); Ordered 11/08/24 Ordered By: Dionicio Umanzor Quality Discharge Quality Measures VTE prophylaxis
== END 2024-11-08 18:18 | disposition home or self-care (01) | DRG 53 ==
LOC: SERX 09:32 → SERHOLD 12:12 → S2NX 18:27 → S2SX 11-05 06:27
PROVIDERS: Emergency Medicine; Radiology Diagnostic Radiology; Student in an Organized Health Care Education/Training Program; Admitting Provider Student in an Organized Health Care Education/Training Program; Emergency Provider Emergency Medicine; Visit Provider Internal Medicine
DX: R56.9 Unspecified convulsions (principal); F15.10 Other stimulant abuse, uncomplicated; K76.0 Fatty (change of) liver, not elsewhere classified; F10.239 Alcohol dependence with withdrawal, unspecified; D50.9 Iron deficiency anemia, unspecified; D69.59 Other secondary thrombocytopenia; E87.6 Hypokalemia; E83.42 Hypomagnesemia; R31.9 Hematuria, unspecified; Z78.1 Physical restraint status; K14.6 Glossodynia
CPT/HCPCS: 36415; 70450; 76705; 80053; 80061; 80307; 80320; 81001; 81025; 82140; 82607; 83540; 83550; 83735; 84443; 84703; 85014; 85018; 85025; 85610; 85730; 86850; 86900; 86901; 86923; 93005; 95816; 96361; 96365; 96366; 96367; 96375; 99285; J1650; J2060; J2560; J3475; J3480; J7030; J7042; P9016; A9270; G0480